=== PATIENT | male | born 1995 | race African-American/Black ===

== ENCOUNTER 2023-05-02 02:59 | Emergency (ER) | payer SELFPAY ==
[~2023-05-02] VITALS: Ht 188 cm; Wt 105.0 kg
[2023-05-02 03:02] VITALS: BP 126/68; O2SAT 100
[2023-05-02 03:59] VITALS: PULSE 81; RESP 18; TEMP 98.1
== END 2023-05-02 04:01 | disposition home or self-care (01) ==
LOC: ER 02:59
DX: R07.89 Other chest pain (principal); J45.909 Unspecified asthma, uncomplicated
CPT/HCPCS: 99283